=== PATIENT | male | born 1965 | race Caucasian/White ===

== ENCOUNTER 2018-05-10 18:53 | Observation (INO) | payer OTHER ==
[~2018-05-10] VITALS: Ht 170.2 cm; Wt 86.2 kg
[2018-05-10 18:56] VITALS: BP 157/82
[2018-05-10] MEDS ORDERED: LIPITOR10 MG (19:00)
[2018-05-10 19:21] LABS: ABSOLUTE EOSINOPHILS 0.1 thou/uL (0.0-0.7); ABSOLUTE LYMPHOCYTES 2.8 thou/uL (0.8-5.3); ABSOLUTE MONOCYTES 0.6 thou/uL (0.0-1.2); ABSOLUTE NEUTROPHILS 3.8 thou/uL (1.6-8.1); BASOPHILS 0.5 %; EOSINOPHILS 1.4 %; HEMATOCRIT 45.5 % (42.0-52.0); HEMOGLOBIN 15.8 gm/dL (14.0-18.0); MCH 30.2 pg (26.0-34.0); MCHC 34.7 g/dL (28.0-37.0); MCV 87.2 fL (80.0-100.0); MONOCYTES 8.6 %; MPV 7.3 fl. (7.2-11.1); NUCLEATED RBCS 0 /100WBC; PLATELET COUNT* 222 thou/uL (150-400); POLYS 51.5 %; RBC 5.22 mil/uL (4.50-6.00); RDW-CV 12.5 % (10.5-14.5); WBC 7.4 thou/uL (4.0-11.0)
[2018-05-10 19:30] LABS: ANION GAP 9 mmol/L (7-16); BUN 17 mg/dL (7-18); CALCIUM 9.9 mg/dL (8.5-10.1); CHLORIDE 99 mmol/L (98-107); CO2 30 mmol/L (21-32); GLUCOSE 112 mg/dL (70-99); POTASSIUM 3.7 mmol/L (3.5-5.1); SODIUM 138 mmol/L (136-145)
[2018-05-10 19:34] LABS: ALBUMIN 4.3 g/dL (3.4-5.0); ALKALINE PHOSPHATASE 108 U/L (46-116); APTT 30.5 Seconds (25.0-31.3); LIPASE 181 U/L (73-393); PROTIME 10.2 Seconds (9.20-11.50); SGOT 23 U/L (15-37); SGPT 37 U/L (30-65); TOTAL BILIRUBIN 0.3 mg/dL (<0.1-1.0); TOTAL PROTEIN 7.8 g/dL (6.4-8.2); TROPONIN-I LEVEL <0.06 ng/mL (<0.06)
[2018-05-11 00:24] VITALS: BP 132/82
[2018-05-11 00:31] VITALS: BP 112/79
--- NOTE | 2018-05-11 01:36 | NUR ---
PATIENT CAME TO THE FLOOR FROM THE ER IN STABLE CONDITION. SOME COMPLAINTS OF MILD DISCOMFORT THAT IS TOLERABLE PER PATIENT. ROOM ORIENTATION AND ADMISSION ASSESSMENT DONE. QUESTIONS ANSWERED FOR PATIENT. CALL LIGHT IS IN REACH, WILL CONTINUE TO MONITOR.
--- NOTE | 2018-05-11 06:25 | NUR ---
PATIENT HAS BEEN RESTING AND SLEEPING SINCE COMING TO THE FLOOR FROM THE ER. VITAL SIGNS HAVE BEEN STABLE ON ROOM AIR. NO COMPLAINTS AT THIS TIME. PATIENT IS UP AD SONAM IN ROOM, CALL LIGHT IS IN REACH, WILL CONTINUE TO MONITOR.
[2018-05-11 07:55] VITALS: BP 108/67
[2018-05-11 09:19] LABS: CHOLESTEROL 202 mg/dL (<200); HDL CHOLESTEROL 44 mg/dL (>40); TC:HDL 4.6 Ratio (Not establshd); TRIGLYCERIDE 549 mg/dL (<150); VLDL 110 mg/dL (<40)
[2018-05-11 09:21] LABS: LDL CHOLESTEROL ND mg/dL (<100); SERUM ASSESSMENT Clear
[2018-05-11] MEDS ORDERED: ASPIR 8181 MG PO (10:09)
[2018-05-11] MEDS ORDERED: ATORVASTATIN CA40 MG PO (10:09)
[2018-05-11] MEDS ORDERED: PROTONIX40 M1 PO (10:09)
[2018-05-11 12:13] VITALS: BP 118/69
[2018-05-11 16:15] VITALS: BP 118/69
--- NOTE | 2018-05-11 17:17 | NUR ---
PATIENT A&OX4, ROOM AIR, IV RIGHT FOREARM SALINE LOCK. UP AD SONAM, STEADY GIAT. NO C/O PIAN/N/V. STRESS TEST TODAY. PATIENT DISCHARGED AFTER STRESS TEST. RESULTS PENDING. PATIENT DISCHARGED, REVIEWED PAPERWORK, AT BEDSIDE. ALL QUESTIONS AND CONCERNS ANSWERED. NO OTHER CONCERNS AT THIS TIME. PATIENT LEFT UNIT AT 1710 AMBULATORY WITH AND ALL BELONGINGS, NOTHING LEFT BEHIND. APPROPRIATE AND COOPORATIVE WITH CARE.
--- NOTE | 2018-05-11 17:26 | NUR ---
SW met with pt while pt was completing stress test. Pt lives at home with and is normally independent with ADLs and mobility. Pt did not anticipate pt to have any dc needs.
--- NOTE | 2018-05-11 18:02 | CARDNUC ---
[place] [address] CARDIAC NUCLEAR IMAGING REPORT Name: TAN LI Room: [address]#: [id number] Admission: 05/10/18 Attend Phys: Crow Orantes, Discharge: 05/11/18 Date of : 65 Date of Service: 05/11/18 180 Report #: [id number] THIS REPORT FOR: //name// APPROVED REPORT Study performed: 05/11/2018 08:06:00 Indication: Chest pain Patient Location: In-Patient Room #: 317 Stress Tech: Ana Orellana Stress Nurse: Tisha Ibanez RN Ht: 5 ft 7 in Wt: 189 lbs BSA: 1.97 m2 BMI: 29.59 Medical History Medical History: Angina, Hyperlipidemia Medications: Atorvastatin, Home med ASA 81 MG Allergies: No known drug allergies Cardiac Risk Factors: Age, Hyperlipidemia, FHX of CAD Previous Cardiac Procedures: None Pretest Chest Pain Characteristics: No chest pain Exercise History: Physically active Physical Disabilities: Knee injury Meds Held (24 hrs): None Resting Data Rest SPECT myocardial perfusion imaging was performed in supine position 30 minutes following the intravenous injection of 11.5 mCi of Tc-99m Sestamibi. Time of rest injection: 13:50 The images were gated to evaluate regional wall motion and calculate left ventricular ejection fraction. Administration Route: IV Administration Site: Right AC Exercise Stress At peak stress, the patient was injected intravenously with 33.7mCi of Tc-99m Sestamibi. Time of stress injection: 15:45 Administration Route: IV Administration Site: Right AC Heart Rate at time of stress injection: 148 bpm. Gated Stress SPECT was performed 30 [place] [address] CARDIAC NUCLEAR IMAGING REPORT Name: TAN LI Room: [address]#: [id number] Admission: 05/10/18 Attend Phys: Crow Orantes, Discharge: 05/11/18 Date of : 65 Date of Service: 05/11/18 1802 Report #: [id number] injection. The images were gated to evaluate regional wall motion and calculate left ventricular ejection fraction. Prone imaging was performed. Stress Test Details Stress Test: Exercise stress testing was performed using a [place] protocol. HR Max Heart Rate (APMHR): 167 bpm Resting HR: 66 bpm Target HR (85% APMHR): 141 bpm Max HR Achieved: 148 bpm % of APMHR: 88 Recovery HR: 98 bpm HR response to stress: Normal HR response to stress BP Resting BP: 152/99 mmHg Max BP: 199/97 mmHg Recovery BP: 150/97 mmHg BP response to stress: Normal blood pressure response to stress. ECG Resting ECG: sinus rhythm with left anterior fascicular block Stress ECG: sinus tachycardia with left anterior fascicular block ST Change: None Arrhythmia: None Recovery ECG: sinus rhythm with left anterior fascicular block Recovery ST Change: None Recovery Arrhythmia: None Clinical Reason for Termination: Completed protocol, Target HR achieved Stress Symptoms: Dyspnea Exercise duration: 8 min 54 sec Exercise capacity: 10.16 METs Overall Exercise Capacity for Age: Normal The patient has no significant symptoms with standard [place] protocol exercise. Nurse Comments 53 year old male, inpatient, presented with reports of recent chest pain and family HX of CAD. Patient agreed to [place] [address] CARDIAC NUCLEAR IMAGING REPORT Name: TAN LI Room: [address]#: [id number] Admission: 05/10/18 Attend Phys: Crow Orantes, Discharge: 05/11/18 Date of : 65 Date of Service: 05/11/18 1802 Report #: [id number] as knee surgical site did start not hurting. Patient tolerated treadmill well. Recovery unremarkable. Patient escorted by staff to Nuclear Medicine for images. Patient stable with no complaints at that time. Stress ECG Conclusion The baseline 12-lead EKG shows sinus rhythm with left anterior fascicular block. There were no significant ST or T wave abnormalities noted. EKGs obtained during and post exercise showed sinus rhythm and sinus tachycardia with no significant ST or T wave changes when compared baseline. There were no stress-induced arrhythmias. Study Quality Study: Good Artifact: No artifact Study Data At rest, the left ventricular ejection fraction was 62%.. Post stress, the left ventricular ejection was 71%.. TID = 0.85. Perfusion Normal left ventricular perfusion. Wall Motion Normal left ventricular wall motion. Nuclear Conclusion ECG Findings: negative for ischemia Clinical Findings: negative for ischemia Nuclear Findings: negative for ischemia Exercise Capacity: normal Left Ventricular Function: normal Risk Study: low Myocardial perfusion images show no defect to suggest infarct or ischemia. Left ventricular systolic function is normal on gated studies. This is a low risk study. <Conclusion> The baseline 12-lead EKG shows sinus rhythm with left anterior fascicular block. There were no significant ST or T wave abnormalities noted. EKGs obtained during and post exercise showed sinus rhythm and sinus tachycardia with no significant ST [place] [address] CARDIAC NUCLEAR IMAGING REPORT Name: TAN LI Room: [address]#: [id number] Admission: 05/10/18 Attend Phys: Crow Orantes, Discharge: 05/11/18 Date of : 65 Date of Service: 05/11/18 1802 Report #: [id number] changes when compared baseline. There were no stress-induced arrhythmias. <ELECTRONICALLY SIGNED> By: Keanu Brannon MD, FACC 05/11/181801 01 01 Keanu Brannon MD, FACC /INF
[2018-05-11 19:14] LABS: GLYCOHEMOGLOBIN (HGB A1C) 5.3 % (4.8-5.6)
--- NOTE | 2018-05-12 17:59 | EKG ---
[place] [address] ELECTROCARDIOGRAM REPORT Name: TAN LI Room: [address]#: [id number] Admission: 05/10/18 Attend Phys: Crow Orantes MD Discharge: 05/11/18 Date of : 65 Report #: [id number] THIS REPORT FOR: //name// [facility] ED Test Date: 2018-05-10 Test Time: 18:58:27 Pat Name: TAN LI Department: Room: [facility] Gender: M Horticulture/Floriculture Teacher: Jesus GORDON : 1965 Requested By: Chelle Persaud Order Number: [id number] MD: Keanu Brannon Measurements Intervals [place] Rate: 45 P: 44 [place]: 188 QRS: -23 QRSD: 95 T: 12 QT: 410 QTc: 355 Interpretive Statements Sinus rhythm Supraventricular bigeminy Inferior infarct, old Anteroseptal infarct, age indeterminate Baseline wander in lead(s) V1 No previous ECG available for comparison Electronically Signed On 05-12-2018 17:59:15 REGULATORY COORDINATOR by Keanu Brannon [email or web address] <ELECTRONICALLY SIGNED> By: Keanu Brannon MD, FACC 05/12/18 1759 185 57 Keanu Brannon MD, FACC /EPI
--- NOTE | 2018-05-12 18:00 | EKG ---
[place] [address] ELECTROCARDIOGRAM REPORT Name: TAN LI Room: [address]#: [id number] Admission: 05/10/18 Attend Phys: Crow Orantes MD Discharge: 05/11/18 Date of : 65 Report #: [id number] THIS REPORT FOR: //name// [facility] ED Test Date: 2018-05-10 Test Time: 21:53:14 Pat Name: TAN LI Department: Room: [facility] Gender: M Registered Nurse Ambulatory: LOLA : 1965 Requested By: Chelle Persaud Order Number: [id number] MD: Keanu Brannon Measurements Intervals [place] Rate: 50 P: 36 ID: 180 QRS: -23 QRSD: 90 T: 5 QT: 387 QTc: 353 Interpretive Statements Sinus rhythm Inferior infarct, old Anterior infarct, old No previous ECG available for comparison Electronically Signed On 05-12-2018 18:00:06 MICE RAISER by Keanu Brannon [email or web address] <ELECTRONICALLY SIGNED> By: Keanu Brannon MD, [facility] 05/12/18 1800 52 52 Keanu Brannon MD, FACC /EPI
--- NOTE | 2018-05-12 18:00 | EKG ---
[place] [address] ELECTROCARDIOGRAM REPORT Name: TAN LI Room: [address]#: [id number] Admission: 05/10/18 Attend Phys: Crow Orantes MD Discharge: 05/11/18 Date of : 65 Report #: [id number] THIS REPORT FOR: //name// [facility] ED Test Date: 2018-05-11 Test Time: 00:00:55 Pat Name: TAN LI Department: Room: [address] Gender: M Business Operations Director: TJ : 1965 Requested By: Rojas Obrien Order Number: [id number] Patrizia MD: Keanu Brannon Measurements Intervals [place] Rate: 47 P: 55 [place]: 182 QRS: -26 QRSD: 88 T: 33 QT: 404 QTc: 358 Interpretive Statements Sinus bradycardia Inferior infarct, old Anterior infarct, old No previous ECG available for comparison Electronically Signed On 05-12-2018 18:00:11 DIGITAL MARKETING ASSOCIATE by Keanu Brannon [email or web address] <ELECTRONICALLY SIGNED> By: Keanu Brannon MD, [facility] 05/12/18 1800 0000 0000 Keanu Brannon MD, FACC /EPI
== END 2018-05-11 17:10 | disposition home or self-care (01) ==
LOC: M.ERS 18:53 → M.TBA-ER 22:33 → M.3W 22:33
PROVIDERS: Internal Medicine; Personal Emergency Response Attendant; ADMIT Internal Medicine
DX: R07.89 Other chest pain (principal); I16.0 Hypertensive urgency; E78.5 Hyperlipidemia, unspecified; K21.9 Gastro-esophageal reflux disease without esophagitis; Z79.899 Other long term (current) drug therapy

== ENCOUNTER 2019-05-26 12:18 | Emergency (ER) | payer OTHER ==
[~2019-05-26] VITALS: Ht 170.2 cm; Wt 91.6 kg
[~2019-05-26 12:18] MED LIST: ASPIR 8181 MG PO; ATORVASTATIN CA40 MG PO; LIPITOR10 MG; PROTONIX40 M1 PO
[2019-05-26] MEDS ORDERED: EZETIMIBE10 MG PO (12:32)
[2019-05-26 13:00] LABS: ABSOLUTE BASOPHILS 0.1 thou/uL (0.0-0.2); ABSOLUTE EOSINOPHILS 0.1 thou/uL (0.0-0.7); ABSOLUTE LYMPHOCYTES 1.6 thou/uL (0.8-5.3); ABSOLUTE MONOCYTES 0.4 thou/uL (0.0-1.2); ABSOLUTE NEUTROPHILS 3.1 thou/uL (1.6-8.1); BASOPHILS 1.1 %; EOSINOPHILS 1.3 %; HEMATOCRIT 46.4 % (42.0-52.0); HEMOGLOBIN 16.2 gm/dL (14.0-18.0); MCH 30.1 pg (26.0-34.0); MCV 85.9 fL (80.0-100.0); MONOCYTES 8.2 %; MPV 6.9 fl. (7.2-11.1); NUCLEATED RBCS 0 /100WBC; PLATELET COUNT* 208 thou/uL (150-400); POLYS 59.4 %; RDW-CV 12.7 % (10.5-14.5); WBC 5.3 thou/uL (4.0-11.0)
[2019-05-26 13:14] LABS: APTT 32.1 Seconds (25.0-31.3); PROTIME 10.7 Seconds (9.20-11.50)
[2019-05-26 13:15] LABS: CALCIUM 9.3 mg/dL (8.5-10.1); CREATININE 1.1 mg/dL (0.6-1.3); POTASSIUM 4.3 mmol/L (3.5-5.1)
[2019-05-26 13:26] LABS: ALBUMIN 4.2 g/dL (3.4-5.0); TOTAL BILIRUBIN 0.5 mg/dL (<0.1-1.0); TOTAL PROTEIN 7.2 g/dL (6.4-8.2)
[2019-05-26 15:46] VITALS: BP 137/91
--- NOTE | 2019-05-27 12:29 | EKG ---
[place] [address] ELECTROCARDIOGRAM REPORT Name: TAN LI Room: [facility]#: [id number] Admission: 05/26/19 Attend Phys: Discharge: 05/26/19 Date of : 65 Report #: [id number] THIS REPORT FOR: //name// [facility] ED Test Date: 2019-05-26 Test Time: 12:30:17 Pat Name: TAN LI Department: Room: Gender: M Industrial Hygiene Technician: : 1965 Requested By: Chelle Persaud Order Number: [id number] MD: Alvarez Ewing Measurements Intervals [place] Rate: 67 P: 36 CT: 180 QRS: -24 QRSD: 90 T: 5 QT: 376 QTc: 397 Interpretive Statements Sinus rhythm Inferior infarct, old Anterior infarct, old Compared to ECG 05/11/2018 00:00:55 Sinus bradycardia no longer present Myocardial infarct finding still present Electronically Signed On 05-27-2019 12:29:14 SHIP'S OFFICER by Alvarez Ewing [email or web address] <ELECTRONICALLY SIGNED> By: Alvarez Ewing MD, [facility] 05/27/19 1229 1230 123 Alvarez Ewing MD, FAC /EPI
== END 2019-05-26 15:48 | disposition home or self-care (01) ==
LOC: M.ERS 12:18
PROVIDERS: Personal Emergency Response Attendant
DX: R07.89 Other chest pain (principal); E78.00 Pure hypercholesterolemia, unspecified

== ENCOUNTER → 2019-06-07 | Outpatient (CLI) | payer OTHER ==
[2019-06-07] VITALS (8 sets, daily range): BP systolic 121–136; BP diastolic 69–91
[~2019-06-07] VITALS: Ht 170.2 cm; Wt 90.7 kg
[~2019-06-07] MED LIST changes: +EZETIMIBE10 MG PO
[2019-06-07 11:33] LABS: APTT 31.4 Seconds (25.0-31.3); INR 1.1; PROTIME 11.1 Seconds (9.20-11.50)
[2019-06-07 11:35] LABS: HEMATOCRIT 46.4 % (42.0-52.0); HEMOGLOBIN 16.2 gm/dL (14.0-18.0); MCV 85.7 fL (80.0-100.0); MPV 7.4 fl. (7.2-11.1); RBC 5.41 mil/uL (4.50-6.00); RDW-CV 12.6 % (10.5-14.5); WBC 5.8 thou/uL (4.0-11.0)
[2019-06-07 11:36] LABS: ANION GAP 11 mmol/L (7-16); BUN 15 mg/dL (7-18); CHLORIDE 104 mmol/L (98-107); CO2 26 mmol/L (21-32); CREATININE 1.1 mg/dL (0.6-1.3); GLUCOSE 101 mg/dL (70-99); SODIUM 141 mmol/L (136-145)
[2019-06-07 11:40] LABS: ALBUMIN 4.2 g/dL (3.4-5.0); ALKALINE PHOSPHATASE 88 U/L (46-116); CHOLESTEROL 151 mg/dL (<200); HDL CHOLESTEROL 49 mg/dL (>40); LDL CHOLESTEROL 63 mg/dL (<100); SGOT 31 U/L (15-37); SGPT 51 U/L (30-65); TC:HDL 3.1 Ratio (Not establshd); TOTAL BILIRUBIN 0.6 mg/dL (<0.1-1.0); TOTAL PROTEIN 7.6 g/dL (6.4-8.2); TRIGLYCERIDE 198 mg/dL (<150); VLDL 40 mg/dL (<40)
[2019-06-07 11:43] LABS: SERUM ASSESSMENT Clear
--- NOTE | 2019-06-07 14:40 | EKG ---
[place] [address] ELECTROCARDIOGRAM REPORT Name: TAN LI Room: [facility]#: [id number] Admission: 06/07/19 Attend Phys: Keanu Brannon MD Discharge: Date of : 65 Report #: [id number] THIS REPORT FOR: //name// [facility] Test Date: 2019-06-07 Test Time: 12:09:52 Pat Name: TAN LI Department: Room: Gender: M Lawn Care Technician: : 1965 Requested By: Keanu Brannon Order Number: [id number] MD: Keanu Brannon Measurements Intervals [place] [facility] Rate: 64 P: 45 [place]: 175 QRS: -26 QRSD: 96 T: 6 QT: 380 QTc: 392 Interpretive Statements Sinus rhythm Inferior infarct, old Anterior infarct, old Compared to ECG 05/26/2019 12:30:17 No significant changes Electronically Signed On 06-07-2019 14:40:12 PARTS ASSEMBLER by Keanu Brannon [email or web address] <ELECTRONICALLY SIGNED> By: Keanu Brannon MD, [facility] 06/07/19 1440 1209 08 Keanu Brannon MD, FACC /EPI
--- NOTE | 2019-06-11 12:03 | CARD ---
[address] [address] CARDIAC CATH REPORT Name: TAN LI Room: [facility]#: [id number] Admission: 06/07/19 Attend Phys: Keanu Brannon MD Discharge: Date of : 65 Report #: [id number] THIS REPORT FOR: //name// APPROVED REPORT Study performed: 06/07/2019 15:19:07 Patient Details Patient Status: Out-Patient Room #: The patient is a 54 year-old male Event Personnel Keanu Brannon Dealer Card Room, Brit Anderson RN RN, Crow Trujillo Scrub, Katia Parks RTR Monitor Procedures Performed Art Access - R femoral artery Left Heart Cath w/or w/o Coronaries Hemostasis w/ Mynx Procedure Narrative The patient was brought electively to the Cardiac Catheterization Laboratory and was prepped and draped in a sterile manner. The right femoral was infiltrated with 2% Lidocaine subcutaneous anesthesia. A Polo 6 FR sheath was inserted into the right femoral artery. Coronary angiography was performed using coronary diagnostic catheters. The right coronary system was accessed and visualized with a Diagnostic JR 4 6 Fr catheter. The left coronary system was accessed and visualized with a Diagnostic JL 4 6 Fr catheter. The left ventricle was accessed and visualized with a Diagnostic Pigtail 6 Fr catheter. Left ventricular/Aortic Valve gradient assessed via catheter pullback. Left ventriculogram was performed in [place] projection. Closure device was deployed with a Fr MynxGrip 6/7F. The patient tolerated the procedure well and there were no complications associated with the procedure. There was no hematoma. Intraoperative Conscious Sedation Sedation start time: 16:14 Case end Time: 16:35 Fentanyl 25 mcg Versed 2 mg Fluoro Time: 1.7 minutes Dose: DAP 23730 cGycm2 622 mGy Contrast Type and Amount: Visipaque 70 ml Diagnostic [place] [address] CARDIAC CATH REPORT Name: TAN LI Room: [facility]#: [id number] Admission: 06/07/19 Attend Phys: Keanu Brannon MD Discharge: Date of : 65 Report #: [id number] Left Main Left main coronary artery is normal and bifurcates into an LAD and circumflex coronary artery. LAD The LAD is minimally plaqued and mildly calcified proximally with up to 10% narrowing. The midportion is 10% plaquing. The vessel is free of hemodynamically significant disease. Diagonal 1 A large branched first diagonal is normal. Diagonal 2 A moderate size second diagonal branch is normal. Circumflex The circumflex coronary artery is minimally plaqued 10% its proximal and midportion. OM1 A single branched obtuse marginal branch appears normal. Right Coronary The right coronary artery is minimally plaqued in its proximal and distal portion of 10%. The remainder of the vessel is normal. R PDA A moderate-sized PDA is normal. RPLV A small posterolateral LV branch is normal. Left Ventriculography Left Ventriculography was not performed. The left ventricle is normal in size with normal contractility. The left ventricular ejection fraction is estimated to be 65%. Hemodynamics The aortic pressure is 142/71 mmHg with a mean of 83 mmHg. The left ventricular pressure is 120/-4 mmHg with a mean of mmHg. The left ventricular end diastolic pressure is 1 mmHg. Conclusion 1. Minimal coronary artery disease without hemodynamically significant stenoses. 2. Normal left ventricular systolic function. 3. Normal left ventricular end-diastolic pressure. Recommendations 1. Continue medical management and aggressive risk factor modification. <ELECTRONICALLY SIGNED> By: Keanu Brannon MD, FACC 06/11/19 1202 120 1202Michaeedmund Brannon MD, FACC /INF
== END | disposition home or self-care (01) ==
LOC: M.CL 10:23
PROVIDERS: Internal Medicine Cardiovascular Disease
DX: R07.9 Chest pain, unspecified (principal); I25.10 Atherosclerotic heart disease of native coronary artery without angina pectoris; I10 Essential (primary) hypertension; E78.00 Pure hypercholesterolemia, unspecified; Z98.890 Other specified postprocedural states; Z79.899 Other long term (current) drug therapy

== ENCOUNTER 2019-07-21 08:33 | Emergency (ER) | payer OTHER ==
[~2019-07-21] VITALS: Ht 170.2 cm; Wt 90.7 kg
[2019-07-21] MEDS ORDERED: COQ-1030 MG PO (08:47)
[2019-07-21 09:11] LABS: INFLUENZA A ANTIGEN Negative (Negative); INFLUENZA B ANTIGEN Negative (Negative)
[2019-07-21] MEDS ORDERED: LEVAQUIN 750 M750 MG PO (09:56)
[2019-07-21 10:39] VITALS: BP 137/76
== END 2019-07-21 10:40 | disposition home or self-care (01) ==
LOC: M.ERS 08:33
PROVIDERS: Emergency Medicine Emergency Medical Services
DX: J18.9 Pneumonia, unspecified organism (principal); E78.00 Pure hypercholesterolemia, unspecified